=== PATIENT | male | born 1965 | race Two or more races ===

== ENCOUNTER 2018-10-01 08:18 | Outpatient (CLI) | payer OTHER | END 2018-10-01 08:39 | disposition home or self-care (01) | LOC: MRI 08:18 | DX: M25.511 Pain in right shoulder (principal) | CPT/HCPCS: 73221 ==

== ENCOUNTER 2018-12-18 09:29 | Outpatient (CLI) | payer OTHER | END 2018-12-18 15:14 | disposition home or self-care (01) | LOC: LAB 09:29 | DX: D68.8 Other specified coagulation defects (principal); E78.2 Mixed hyperlipidemia; N39.0 Urinary tract infection, site not specified; R07.89 Other chest pain ==